=== PATIENT | female | born 1990 | race Caucasian/White ===

== ENCOUNTER → 2022-02-23 | Emergency (ER) | payer BC, OTHER ==
[~2022-02-23] MED LIST: Famotidine/PF 20 mg/2ml Vial ONE; Morphine 2 MG/ML VIAL ONE; Ondansetron PF 4 MG/2 ML Vial ONE; Pantoprazole 40 MG VIAL ONE
[2022-02-23 14:16] LABS: #Basophils 0.2 thou/uL (0.0-0.2); #Eosinphils 0.3 thou/uL (0.0-0.7); #Lymphocytes 2.8 thou/uL (1.20-3.40); #Monocytes 0.6 thou/uL (0.11-0.59); #Neutrophils 7.5 thou/uL (1.40-6.50); %Basophils 1.5 % (0.0-1.0); %Eosinophils 2.5 % (0.0-10.0); %Lymphocytes 24.6 % (21.0-51.0); %Monocytes 4.9 % (0.0-10.0); %Neutrophils 66.5 % (42.0-75.0); Hemoglobin 13.1 g/dL (12.0-16.0); Mean Corpuscular HGB CONC 32.3 g/dL (32.0-36.0); Mean Corpuscular Hemoglobin 27.6 pg (27.0-31.0); Mean Corpuscular Volume 85.5 fL (78.0-98.0); Mean Platelet Volume 6.2 fL (7.4-10.4); Platelet Count 345 thou/uL (130-400); RBC Distribution Width 13.2 % (11.5-14.5); Red Blood Cell (RBC) Count 4.76 mill/uL (4.20-5.40); White Blood Cell (WBC) Count 11.3 thou/uL (4.8-10.8)
[2022-02-23 14:34] LABS: ALT (SGPT) 17 U/L (8-55); AST (SGOT) 12 U/L (5-34); Albumin 3.6 g/dL (3.5-5.0); Alkaline Phosphatase 81 U/L (40-110); Anion Gap 14 mmol/L (10-20); BUN (Urea Nitrogen) 8 mg/dL (7.0-18.7); Bilirubin, Total Less than 0.2 mg/dL (0.2-1.2); Calc. Creatinine Clearance 0 mL/min (70-130); Calcium 8.9 mg/dL (7.8-10.44); Carbon Dioxide 24 mmol/L (22-29); Chloride 105 mmol/L (98-107); Estimated GFR 118; Globulin 3.4 g/dL (2.4-3.5); Glucose 112 mg/dL (70-105); Lipase 10 U/L (8-78); Potassium 3.8 mmol/L (3.5-5.1); Sodium 139 mmol/L (136-145)
== END ==
LOC: BURERS 13:45
DX: K92.2 Gastrointestinal hemorrhage, unspecified (principal); I10 Essential (primary) hypertension; F17.290 Nicotine dependence, other tobacco product, uncomplicated; J45.909 Unspecified asthma, uncomplicated; Z79.899 Other long term (current) drug therapy; Z79.51 Long term (current) use of inhaled steroids
CPT/HCPCS: 36415; 71045; 80053; 82274; 83690; 84484; 85025; 93005; 94760; C9113; J2270; J2405; S0028

== ENCOUNTER 2022-09-19 17:49 | Emergency (ER) | payer BC ==
[~2022-09-19 17:49] MED LIST changes: -Famotidine/PF 20 mg/2ml Vial ONE; +Iopamidol 370 76% 100 ML VIAL ONE; -Morphine 2 MG/ML VIAL ONE; -Ondansetron PF 4 MG/2 ML Vial ONE; -Pantoprazole 40 MG VIAL ONE
[2022-09-19] MEDS ORDERED: Ketorolac Tromethamine 30 MG/ML VIAL ONE (18:49)
[2022-09-19] MEDS ORDERED: Ondansetron PF 4 MG/2 ML Vial ONE (18:49)
[2022-09-19 18:55] LABS: #Basophils 0.1 thou/uL (0.0-0.2); #Eosinphils 0.2 thou/uL (0.0-0.7); #Lymphocytes 2.8 thou/uL (1.20-3.40); #Monocytes 0.5 thou/uL (0.11-0.59); %Basophils 1.3 % (0.0-1.0); %Eosinophils 1.9 % (0.0-10.0); %Lymphocytes 29.1 % (21.0-51.0); %Monocytes 5.3 % (0.0-10.0); %Neutrophils 62.3 % (42.0-75.0); Hemoglobin 12.9 g/dL (12.0-16.0); Mean Corpuscular HGB CONC 32.1 g/dL (32.0-36.0); Mean Corpuscular Volume 87.1 fl (78.0-98.0); Mean Platelet Volume 6.6 fL (7.4-10.4); Platelet Count 290 10x3/uL (130-400); RBC Distribution Width 12.8 % (11.5-14.5); White Blood Cell (WBC) Count 9.6 10x3/uL (4.8-10.8)
[2022-09-19 19:05] LABS: Bilirubin Negative (Negative); Blood, Urine Negative (Negative); Clarity Cloudy (Clear); Glucose, Urine (Dipstick) Negative (Negative); Ketone, Urine Negative (Negative); Leukocyte Moderate (Negative); Nitrite Negative (Negative); Protein, Urine (Dipstick) Negative (Neg-Trace)
[2022-09-19 19:06] LABS: Pregnancy Test - Urine (BHCG) Negative (Negative); Pregu Control Background? CLEAR/WHITE (CLR/WHITE); Pregu Control Bar Appear? YES (CONTROL BAR)
[2022-09-19 19:11] LABS: ALT (SGPT) 19 U/L (8-55); AST (SGOT) 18 U/L (5-34); Albumin 3.7 g/dL (3.5-5.0); Alkaline Phosphatase 70 U/L (40-110); Anion Gap 12 mmol/L (10-20); BUN (Urea Nitrogen) 13 mg/dL (7.0-18.7); Bilirubin, Total Less than 0.2 mg/dL (0.2-1.2); Calc. Creatinine Clearance 0 mL/min (70-130); Calcium 8.7 mg/dL (7.8-10.44); Carbon Dioxide 26 mmol/L (22-29); Chloride 103 mmol/L (98-107); Estimated GFR 118; Glucose 119 mg/dL (70-105); Lipase 19 U/L (8-78); Magnesium 1.8 mg/dL (1.6-2.6); Potassium 3.9 mmol/L (3.5-5.1); Protein, Total 6.7 g/dL (6.0-8.3); Sodium 137 mmol/L (136-145)
[2022-09-19 19:11] LABS: Bacteria/HPF 3+ HPF (None Seen); Mucous/LPF 2+ LPF (<2+); RBC/HPF 0-3 HPF (0-3)
[2022-09-19] MEDS ORDERED: Sodium Chloride 0.9% 100 ML ONE (19:28)
[2022-09-19] MEDS ORDERED: cefTRIAXone (ROCEPHIN) 1 GM VIAL ONE (19:28)
== END 2022-09-19 19:55 | disposition home or self-care (01) ==
LOC: BURERS 17:49
DX: N39.0 Urinary tract infection, site not specified (principal); I10 Essential (primary) hypertension; F17.290 Nicotine dependence, other tobacco product, uncomplicated
CPT/HCPCS: 74177; 80053; 81003; 81015; 81025; 83605; 83690; 83735; 85025; 96365; 96375; J0696; J1885; J2405; J3490; Q9967